=== PATIENT | male | born 1975 | race African-American/Black ===

== ENCOUNTER 2024-06-03 11:14 | Emergency (ER) | payer MEDICAID ==
[~2024-06-03] VITALS: Ht 193 cm; Wt 95.0 kg
[2024-06-03 11:29] VITALS: O2SAT 98
[2024-06-03 11:32] VITALS: BP 119/72; PULSE 63; RESP 18; TEMP 36.9; O2SAT 100
== END 2024-06-03 12:00 | disposition home or self-care (01) ==
LOC: ER 11:14
DX: Z00.00 Encounter for general adult medical examination without abnormal findings (principal)
CPT/HCPCS: 99281